=== PATIENT | female | born 1950 | race Caucasian/White ===

== ENCOUNTER 2023-07-21 15:13 | Inpatient (IN) | payer OTHER, SELFPAY ==
[2023-07-21] VITALS (10 sets, daily range): BP systolic 124–191; BP diastolic 64–72; PULSE 85–121; RESP 18–24; TEMP 36.9–37.8; O2SAT 92–96; BMI 42.2
[2023-07-21 15:38] LABS: Appearance Urine Slightly Cloudy (Clear); Bilirubin Urine Negative (Negative); Blood Urine 1+ (Negative); Color Urine Yellow (Yellow); Glucose Urine 2+ (Negative); Ketones Urine Negative (Negative); Leukocyte Esterase Urine Trace (Negative); Nitrite Urine Negative (Negative); Protein Urine Trace (Negative); Specific Gravity Urine 1.015 (1.000-1.030); Urobilinogen Urine 0.2 (0.2-1.0)
[2023-07-21 15:47] LABS: Bacteria Urine Moderate
[2023-07-21 16:27] LABS: Lactate Sepsis w/Reflex* 2.4 mmol/L (0.5-1.9)
--- NOTE | 2023-07-21 16:27 | ED.GENADULT ---
HPI - General Adult General Date Seen: 07/21/23 Chief complaint: Unspecified Complaint, Adult Stated complaint: Chills Time Seen by Provider: 07/21/23 15:57 Source: patient Mode of arrival: ambulatory Limitations: no limitations History of Present Illness HPI narrative: Patient is a 72-year-old woman with underlying diabetes, hypertension, who was at work when she developed chills. No fever that she knows of. She has some pain in the right side of her back although she says that is been on and off for a number of months. Her knees always hurt, no different than usual. She has a little swelling in both ankles because she has been out of her diuretic for the past couple of weeks. She has not had a cough, chest pain, shortness of breath, headache, vomiting, diarrhea, abdominal pain, or other urinary symptoms. She feels better now that she is here under a blanket but she worries that she is not under the blanket she feel chilled again. She is Thai speaking, history obtained with the assistance of an sonography technician. Related Data Home Medications Medication Instructions Recorded Confirmed amlodipine 10 mg tablet 10 mg PO DAILY 07/21/23 07/21/23 atorvastatin 40 mg tablet 40 mg PO DAILY 07/21/23 07/21/23 hydrochlorothiazide 25 mg tablet 25 mg PO DAILY 07/21/23 07/21/23 losartan 50 mg tablet 50 mg PO DAILY 07/21/23 07/21/23 metformin 1,000 mg tablet 1,000 mg PO BID 07/21/23 07/21/23 metoprolol tartrate 50 mg tablet 50 mg PO BID 07/21/23 07/21/23 Allergies Allergy/AdvReac Type Severity Reaction Status Date / Time No Known Drug Allergies Allergy Verified 07/21/23 15:24 Review of Systems Status of ROS: Reports: 10 or more systems reviewed and unremarkable except as noted in History and below [facility] Social History Smoking Status: Never smoker Do you use any of these nicotine containing products: None Second hand tobacco smoke exposure: Yes How often do you have a drink containing alcohol: never AUDIT-C Alcohol total score: 0 Non-prescribed substance use: denies use service: No Exam Narrative: Exam Narrative: Vital signs as noted above. In general, an alert, nontoxic woman. Significant abdominal girth. Head: Normocephalic, atraumatic. Eyes: Pupils are equal reactive. Extraocular movements are full. Conjunctivae are normal. ENT: Mucous membranes are moist. Throat is normal. Neck: Supple without lymphadenopathy. Heart: Tachycardic, regular. No murmur. Lungs: Clear bilaterally. No increased work of breathing, crackles or wheezes. No CVA tenderness. Abdomen: Soft and nontender. Extremities: Well perfused. Trace edema in both ankles. No calf tenderness. Pulses intact. Bilateral knees are normal in appearance without effusion, erythema, warmth. Neurologic: Patient is alert and oriented to person and place. Speech is fluent. Face is symmetric. Moves all extremities equally. Affect: Normal. Skin: Warm and dry. Well perfused. Const: Vital Signs, click to edit/add: Vital Signs - 24 hr 07/21/23 15:26 07/21/23 18:31 07/21/23 18:35 Temperature 99.3 F 100.0 F H 100.0 F H Pulse Rate [Right Pulse Oximeter] 121 H 101 H 105 H Respiratory Rate 24 18 22 Blood Pressure [Ri ght Upper Arm] 191/66 H 139/64 Pulse Oximetry 92 92 Oxygen Delivery Me thod Room Air Room Air Oxygen Flow Rate 07/21/23 18:37 07/21/23 19:40 07/21/23 20:00 Temperature 99.6 F 99.6 F Pulse Rate [Right Pulse Oximeter] 106 H Respiratory Rate 22 Blood Pressure [Ri ght Upper Arm] 139/64 127/69 Pulse Oximetry 94 Oxygen Delivery Me thod Nasal Cannula Oxygen Flow Rate 1.5 Documenting provider has reviewed patient's vital signs: yes Course Course Hospital Course: Following initial evaluation, an IV was placed, I ordered blood cultures and a L normal saline. She is technically afebrile, which she was tachycardic, complained of chills and my initial concern was for possible early sepsis. Labs were fairly unrevealing. She had a white blood cell count of 10.6, she did have a left shift with 88% neutrophils. Hemoglobin normal at 13 and platelets were normal. Sed rate was normal and CRP was minimally elevated at 2.3. Her blood sugar was 278, the remainder of her metabolic panel was unremarkable. Lactate was elevated at 2.4. Urinalysis showed 2-5 red cells and 2-5 white cells, moderate bacteria. She did not have any exam findings suggestive of pyelonephritis and this pain that she has been having on her right flank to lower back has been ongoing for quite some time. COVID was negative. Chest x-ray by my review did not show infiltrate or other acute findings, read as negative by Radiology. TSH was normal. I did a bedside ultrasound, noted gallstones without sonographic Horan's or wall thickening. Cardiac ultrasound was challenging because of her body habitus, no obvious pericardial effusion and she did not seem to have significantly decreased EF. It was difficult to visualize her IVC secondary to body habitus. I elected to do CT scans of the chest abdomen and pelvis, to further evaluate for possible pneumonia, cholecystitis, or other acute finding in the abdomen which might lead to sepsis. She did ultimately end up with a temp of a 100?, tachycardia was improved down to 105. For period of time she was somewhat hypoxic and was put on oxygen, this did seem to improve when she was laying still. CT scan of the chest by my review did not show significant infiltrate and no evidence of PE, final radiology read was essentially negative, she had some nonspecific mild lymphadenopathy, possibly reactive. In the abdomen, by my review she had a calcified mass in the pelvis that looked like probably a fibroid, she also had a separate mass in the pelvis which I was not able to further characterize. Final radiology read is as follows:IMPRESSION: No acute findings within the abdomen and pelvis. Cholelithiasis without evidence for cholecystitis. Hepatic steatosis. Indeterminate 6 cm soft tissue mass in the right lower quadrant/right adnexa with an adjacent 1.8 cm soft tissue nodule. Malignancy can`t be excluded. Recommend pelvic ultrasound for further characterization. 6 cm partially calcified fibroid arising anterior uterus. At this time, vital signs are improved, I did have nursing try to get her up to ambulate to see how she did in terms of respiratory status as well as ability to ambulate as reportedly she had had some difficulty getting up earlier. Nursing reports that she was unsteady on her feet, complained of weakness, dropped her O2 sats to the mid upper 80s. Etiology of this is at this point somewhat unclear although an infectious cause seems likely. The pelvic mass is likely an incidental finding but will need further follow-up. I reviewed all of this with the patient and her son. Vital Signs Vital signs: Initial Vital Signs Temperature 99.3 F 07/21/23 15:26 Temperature Source Temporal Artery Scan 07/21/23 15:26 Pulse Rate 121 H 07/21/23 15:26 Respiratory Rate 24 07/21/23 15:26 Blood Pressure 191/66 H 07/21/23 15:26 Blood Pressure Mean 107 H 07/21/23 15:26 Blood Pressure Position Sitting 07/21/23 15:26 Pulse Oximetry 92 07/21/23 15:26 Oxygen Delivery Method Room Air 07/21/23 15:26 Vital Signs Temperature 99.3 F 07/21/23 15:26 Pulse Rate 121 H 07/21/23 15:26 Respiratory Rate 24 07/21/23 15:26 Blood Pressure 191/66 H 07/21/23 15:26 Pulse Oximetry 92 07/21/23 15:26 Oxygen Delivery Method Room Air 07/21/23 15:26 Temperature 99.6 F 07/21/23 20:00 Pulse Rate 106 H 07/21/23 19:40 Respiratory Rate 22 07/21/23 19:40 Blood Pressure 127/69 07/21/23 19:40 Pulse Oximetry 94 07/21/23 19:40 Oxygen Delivery Method Nasal Cannula 07/21/23 19:40 Oxygen Flow Rate 1.5 07/21/23 19:40 Medical Decision Making Lab Data Labs: Lab Results 07/21/23 07/21/23 07/21/23 Range/Units 15:31 16:12 16:20 WBC 10.58 (4.50-11.00) K/uL RBC 4.91 (4.00-5.20) m/uL Hgb 13.0 (12.0-16.0) gm/dL Hct 41.6 (33.0-51.0) % MCV 85 (80-100) fL MCH 27 (26-34) pg MCHC 31 L (32-36) gm/dL RDW Coeff of Lissy 14.3 (11.5-15.5) % Plt Count 217 (140-440) K/uL Neut % (Auto) 87.6 H (42.0-72.0) % Lymph % (Auto) 10.2 L (20-44) % [place] % (Auto) 1.2 (0.0-11.0) % Eos % (Auto) 0.8 (0.0-7.0) % Baso % (Auto) 0.0 (0.0-3.0) % Neut # (Auto) 9.30 H (1.7-7.0) K/uL Lymph # (Auto) 1.10 (0.90-2.90) K/uL [place] # (Auto) 0.10 (0.00-0.90) K/UL Eos # (Auto) 0.08 (0.00-0.50) K/uL Baso # (Auto) 0.00 (0.00-0.30) K/uL Abs Immat Gran (auto) 0.02 (0.00-0.30) K/uL Imm/Tot Granulo (auto) 0.2 % ESR 17 (2-20) mm/hr Sodium 139 (135-149) mmol/L Potassium 3.9 (3.6-5.1) mmol/L Chloride 107 (96-114) mmol/L Carbon Dioxide 25 (20-32) mmol/L Anion Gap 7 (7-15) mEq/L BUN 25 (7-30) mg/dL Creatinine 0.6 (0.5-1.5) mg/dL Estimated GFR 95 ml/min Glucose 278 H (60-115) mg/dL Lactate 2.4 H (0.5-1.9) mmol/L Calcium 8.7 (8.4-10.6) mg/dL Total Bilirubin 0.4 (0.1-1.5) mg/dL Direct Bilirubin 0.1 (0.0-0.5) mg/dL AST 37 H (12-35) U/L ALT 30 (4-35) U/L Alkaline Phosphatase 198 H (40-150) U/L C-Reactive Protein 2.3 H (0.5-1.0) mg/dL Total Protein 6.7 (6.0-8.3) g/dL Albumin 3.6 (3.3-5.0) g/dL TSH 0.966 (0.270-4.200) uIU/mL Urine Color Yellow (Yellow) Urine Appearance Slightly Cloudy A (Clear) Urine pH 7.0 (5.0-8.5) Ur Specific [place] 1.015 (1.000-1.030) Urine Protein Trace A (Negative) Urine Glucose (UA) 2+ A (Negative) Urine Ketones Negative (Negative) Urine Blood 1+ A (Negative) Urine Nitrite Negative (Negative) Urine Bilirubin Negative (Negative) Urine Urobilinogen 0.2 (0.2-1.0) Ur Leukocyte Esterase Trace A (Negative) Urine RBC 2-5 A (0-2) Urine WBC 2-5 (0-5) Ur Squamous Epith Cells None (None-Few) Urine Bacteria Moderate A (None) SARS-CoV-2 (PCR) Negative SARS-CoV-2 (Negative) Influenza Type A (PCR) Negative PCR FLU A (Negative) Influenza Type B (PCR) Negative PCR FLU B (Negative) RSV (PCR) Negative PCR RSV (Negative) 07/21/23 Range/Units 18:53 WBC (4.50-11.00) K/uL RBC (4.00-5.20) m/uL Hgb (12.0-16.0) gm/dL Hct (33.0-51.0) % MCV (80-100) fL MCH (26-34) pg MCHC (32-36) gm/dL RDW Coeff of Lissy (11.5-15.5) % Plt Count (140-440) K/uL Neut % (Auto) (42.0-72.0) % Lymph % (Auto) (20-44) % [place] % (Auto) (0.0-11.0) % Eos % (Auto) (0.0-7.0) % Baso % (Auto) (0.0-3.0) % Neut # (Auto) (1.7-7.0) K/uL Lymph # (Auto) (0.90-2.90) K/uL [place] # (Auto) (0.00-0.90) K/UL Eos # (Auto) (0.00-0.50) K/uL Baso # (Auto) (0.00-0.30) K/uL Abs Immat Gran (auto) (0.00-0.30) K/uL Imm/Tot Granulo (auto) % ESR (2-20) mm/hr Sodium (135-149) mmol/L Potassium (3.6-5.1) mmol/L Chloride (96-114) mmol/L Carbon Dioxide (20-32) mmol/L Anion Gap (7-15) mEq/L BUN (7-30) mg/dL Creatinine (0.5-1.5) mg/dL Estimated GFR ml/min Glucose (60-115) mg/dL Lactate 1.5 (0.5-1.9) mmol/L Calcium (8.4-10.6) mg/dL Total Bilirubin (0.1-1.5) mg/dL Direct Bilirubin (0.0-0.5) mg/dL AST (12-35) U/L ALT (4-35) U/L Alkaline Phosphatase (40-150) U/L C-Reactive Protein (0.5-1.0) mg/dL Total Protein (6.0-8.3) g/dL Albumin (3.3-5.0) g/dL TSH (0.270-4.200) uIU/mL Urine Color (Yellow) Urine Appearance (Clear) Urine pH (5.0-8.5) Ur Specific [place] (1.000-1.030) Urine Protein (Negative) Urine Glucose (UA) (Negative) Urine Ketones (Negative) Urine Blood (Negative) Urine Nitrite (Negative) Urine Bilirubin (Negative) Urine Urobilinogen (0.2-1.0) Ur Leukocyte Esterase (Negative) Urine RBC (0-2) Urine WBC (0-5) Ur Squamous Epith Cells (None-Few) Urine Bacteria (None) SARS-CoV-2 (PCR) (Negative) Influenza Type A (PCR) (Negative) Influenza Type B (PCR) (Negative) RSV (PCR) (Negative) Discharge Plan Discharge Clinical Impression: Fever, Pelvic mass Patient Disposition: Admitted As Observation Condition: Stable
[2023-07-21] MEDS: 0.9 % SODIUM CHLORIDE 1000 ml 1,000 ML IV ×2 (16:29→17:18)
[2023-07-21 16:30] LABS: Eosinophils Absolute Auto 0.08 K/uL (0.00-0.50); Eosinophils Percent Auto 0.8 % (0.0-7.0); Hematocrit 41.6 % (33.0-51.0); Immature Granulocytes Abs Auto 0.02 K/uL (0.00-0.30); Immature Granulocytes Pct Auto 0.2 %; Lymphocytes Percent Auto 10.2 % (20-44); Mean Corpuscular HGB Conc 31 gm/dL (32-36); Mean Corpuscular Hemoglobin 27 pg (26-34); Mean Corpuscular Volume 85 fL (80-100); Monocytes Percent Auto 1.2 % (0.0-11.0); Neutrophils Percent Auto 87.6 % (42.0-72.0); Platelet Count* 217 K/uL (140-440); RDW Coefficient of Variation % 14.3 % (11.5-15.5); Red Blood Count 4.91 m/uL (4.00-5.20); Slide Review Reflex No; White Blood Count* 10.58 K/uL (4.50-11.00)
[2023-07-21 16:44] LABS: Chloride* 107 mmol/L (96-114); Potassium* 3.9 mmol/L (3.6-5.1); Sodium* 139 mmol/L (135-149)
[2023-07-21 16:45] LABS: Albumin* 3.6 g/dL (3.3-5.0)
[2023-07-21 16:47] LABS: Anion Gap 7 mEq/L (7-15); Blood Urea Nitrogen* 25 mg/dL (7-30); Carbon Dioxide* 25 mmol/L (20-32); Creatinine* 0.6 mg/dL (0.5-1.5); Estimated Glomerular Filt Rate 95 ml/min
[2023-07-21 16:48] LABS: Aspartate Amino Transferase* 37 U/L (12-35); Bilirubin Direct* 0.1 mg/dL (0.0-0.5); Bilirubin Total* 0.4 mg/dL (0.1-1.5); Calcium* 8.7 mg/dL (8.4-10.6); Glucose* 278 mg/dL (60-115); Total Protein* 6.7 g/dL (6.0-8.3)
[2023-07-21 16:49] LABS: Alkaline Phosphatase* 198 U/L (40-150)
[2023-07-21 16:50] LABS: C Reactive Protein* 2.3 mg/dL (0.5-1.0)
--- NOTE | 2023-07-21 17:02 | CRLHL7_ITS ---
For Patients: As a result of the Cures Act, medical imaging exams and procedure reports are released immediately into your electronic medical record. You may view this report before your referring provider. If you have questions, please contact your health care provider. INDICATION: CHILLS, HYPOXIA TECHNIQUE: Chest 2 views. COMPARISON: None. FINDINGS: Cardiovascular and mediastinum: Heart size and vasculature are normal in caliber and appearance. Mediastinum is within normal limits. Lungs and pleural spaces: Lungs are clear. No sign of infiltrate or mass. No sign of pleural effusion. No pneumothorax. Bones and soft tissues: No significant findings. IMPRESSION: Unremarkable chest. Dictated by: Rey Nix MD @ 07/21/2023 17:39:41 (Electronically Signed)
[2023-07-21 17:05] LABS: Alanine Aminotransferase* 30 U/L (4-35); Erythrocyte SedimentationRate* 17 mm/hr (2-20)
[2023-07-21 17:09] LABS: PCR FLU A Negative PCR FLU A (Negative); PCR FLU B Negative PCR FLU B (Negative); PCR RSV Negative PCR RSV (Negative)
[2023-07-21 17:13] LABS: SARS PCR* Negative SARS-CoV-2 (Negative)
[2023-07-21 17:32] LABS: TSH With Reflex to FT4* 0.966 uIU/mL (0.270-4.200)
--- NOTE | 2023-07-21 17:36 | CRLHL7_ITS ---
For Patients: As a result of the Century Cures Act, medical imaging exams and procedure reports are released immediately into your electronic medical record. You may view this report before your referring provider. If you have questions, please contact your health care provider. INDICATION: Gallstones, right flank pain TECHNIQUE: CT abdomen and pelvis acquired with 95 cc Isovue 370 IV contrast. Permanently recorded images are archived. COMPARISON: Chest CT from the same day FINDINGS: Lower chest: Dictated separately Liver: Normal contour. Hepatic steatosis. No focal hepatic lesion. Gallbladder and bile ducts: Cholelithiasis. No inflammation or biliary ductal dilation. Pancreas: Unremarkable. No mass or inflammation. Spleen: Unremarkable. Normal in size. No masses. Adrenal glands: Unremarkable. No nodules. Kidneys, Ureters, and Bladder: Unremarkable. No suspicious masses, stones, or hydronephrosis. Unremarkable ureters and bladder. GI tract: Unremarkable. Normal in caliber. No sign of inflammation. Normal appendix. Vasculature: Normal caliber abdominal aorta with mild atherosclerotic calcification. Mesenteric arteries are patent. Lymph nodes: No lymphadenopathy. Peritoneum/Abdominal Wall: Unremarkable. No free air or significant free fluid. Pelvis: 6 cm soft tissue mass in the right lower quadrant/right adnexa with adjacent 1.8 cm soft tissue nodule between the mass and the uterus. Large, 6 cm, partially calcified fibroid arising from the anterior uterus. Bones: L4-5 posterior fusion changes. Findings compatible with diffuse idiopathic skeletal hyperostosis involving the lower thoracic and upper lumbar spine. IMPRESSION: No acute findings within the abdomen and pelvis. Cholelithiasis without evidence for cholecystitis. Hepatic steatosis. Indeterminate 6 cm soft tissue mass in the right lower quadrant/right adnexa with an adjacent 1.8 cm soft tissue nodule. Malignancy can`t be excluded. Recommend pelvic ultrasound for further characterization. 6 cm partially calcified fibroid arising anterior uterus. Please note that all CT scans at this facility use dose modulation, iterative reconstruction, and/or weight-based dosing when appropriate to reduce radiation dose to as low as reasonably achievable. Dictated by Colin Martinez MD @ 07/21/2023 7:11:53 PM (Electronically Signed)
--- NOTE | 2023-07-21 17:37 | CRLHL7_ITS ---
For Patients: As a result of the Century Cures Act, medical imaging exams and procedure reports are released immediately into your electronic medical record. You may view this report before your referring provider. If you have questions, please contact your health care provider. INDICATION: Chills, hypoxia. TECHNIQUE: CT chest PE was acquired with 100 cc Omnipaque 350 IV contrast. Permanently recorded images are archived. COMPARISON: CT abdomen and pelvis from the same day. FINDINGS: Heart and vasculature: Contrast opacification of the pulmonary arterial tree is adequate. No sign of pulmonary embolism. Heart size is normal. Thoracic aorta and pulmonary artery are normal in caliber. Coronary artery and thoracic aorta atherosclerotic calcification. Lungs and pleura: No suspicious nodules or consolidation. No pleural effusions or pneumothorax. Lymph nodes/mediastinum: Multiple prominent right paratracheal lymph nodes which are not pathologically enlarged by size criteria. Mildly enlarged pretracheal lymph node, series 4, image 71. No axillary lymphadenopathy. Chest wall: No masses. Thyroid: Small calcified left thyroid lobe nodule. Upper abdomen: Dictated separately Bones: Findings compatible with diffuse idiopathic skeletal hyperostosis involving the thoracic and upper lumbar spine. There is an age-indeterminate, though chronic-appearing fracture of the T8 vertebral body which through the robust anterior marginal osteophyte. IMPRESSION: No pulmonary embolism. Mildly prominent right paratracheal and precarinal lymph node. These are nonspecific, possibly reactive to an infectious or inflammatory process. No acute airspace disease identified. Please note that all CT scans at this facility use dose modulation, iterative reconstruction, and/or weight-based dosing when appropriate to reduce radiation dose to as low as reasonably achievable. Dictated by Colin Martinez MD @ 07/21/2023 7:03:05 PM (Electronically Signed)
[2023-07-21 19:00] LABS: Lactate Sepsis 2 Hour 1.5 mmol/L (0.5-1.9)
--- NOTE | 2023-07-21 19:29 | ED.NURSE ---
Attempted to walk patient and her oxygen saturation dropped to 85% on room air. She verbalized feeling dizzy and was assited back to bed. She was placed on 1.5 liters of oxygen and saturation increased to 92%. MD notified.
[2023-07-21] MEDS: PIPERACILLIN/TAZOBACTAM 3.375 GM in 0.9 % SODIUM CHLORIDE Mini-bag 100 ML IVPB (19:33)
[2023-07-21] MEDS: ACETAMINOPHEN 500 MG TABLET 1000 MG PO (20:00)
--- NOTE | 2023-07-21 20:43 | PC.NURSE ---
Received pt from ED. slip free stockings placed and pt ambulated to with severe tachypnea. Multiple family members at assisting with cares. VSS as recorded- temp 99.5. Remains on 2 L NC.
[2023-07-21 21:52] LABS: Procalcitonin* 0.22 ng/mL (<0.50)
[2023-07-21] MEDS: INSULIN NPH 100 UNIT/ML 30 UNIT SUBCUT (22:33)
[2023-07-21] MEDS: ENOXAPARIN 40 MG/0.4 ML INJ SUBCUT (22:34)
[2023-07-21] MEDS: METOPROLOL TARTRATE 50 MG TABLET PO (22:35)
--- NOTE | 2023-07-21 22:54 | P.IMHP_ITS ---
Hospitalist- H&P: HPI History of Present Illness Date Seen: 07/21/23 Chief complaint: Chills Narrative: Nohemi Blair is a 72 year old female with diabetes hypertension and obesity who presents with onset of shaking chills and fever about 2:00 a.m. this afternoon. Prior to that she was feeling well. No other obvious symptoms of illness. She is seen with her son who she requests does interpreting for her. She declines professional sedimentationist services. Prior to this afternoon she is not aware of other symptoms of illness. She does note that yesterday she was feeling hot but the weather outside was very hot and humid. She did not have chills and she is not aware of a fever at that time. She was also not feeling ill. She has had back pain for about a month. This is in her right low back area. She is not aware of an injury there. She is not having any urinary symptoms. No nausea or vomiting or abdominal pain. Bowel and bladder function have been normal. She has not had any respiratory problems. No shortness of breath or cough or congestion or sore throat. She has been hypoxic in the emergency department but has not been feeling short of breath. She has had no recent travel and she has had no known exposures to anybody else who has been ill. She does have a history of cholelithiasis. No obvious symptoms of cholecystitis or biliary colic however. Review of Systems Narrative: Review of systems unremarkable except as noted above. Family does note that she snores heavily. Her son also reports that he has sleep apnea and uses CPAP. She has apparently not been evaluated for this in the past. She notes from last few days she has had a little bit of swelling in her feet. She has also had some vaginal bleeding recently. [facility] Medical History (Updated 07/21/23 @ 23:14 by Naveen Ospina MD) Sepsis ?A41.9 - Sepsis, unspecified organism (ICD-10) Proteinuria due to type 2 diabetes mellitus ?E11.29 - Type 2 diabetes mellitus with other diabetic kidney complication (ICD-10) ?R80.9 - Proteinuria, unspecified (ICD-10) Diabetic polyneuropathy ?E11.42 - Type 2 diabetes mellitus with diabetic polyneuropathy (ICD-10) Cholelithiasis ?K80.20 - Calculus of gallbladder without cholecystitis without obstruction (ICD-10) Spinal stenosis of lumbar region ?M48.061 - Spinal stenosis, lumbar region without neurogenic claudication (ICD-10) Hyperlipidemia ?E78.5 - Hyperlipidemia, unspecified (ICD-10) Hypertension ?I10 - Essential (primary) hypertension (ICD-10) Diabetes mellitus ?E11.9 - Type 2 diabetes mellitus without complications (ICD-10) Sleep apnea ?G47.30 - Sleep apnea, unspecified (ICD-10) Morbid obesity with BMI of 40.0-44.9, adult ?E66.01 - Morbid (severe) obesity due to excess calories (ICD-10) ?Z68.41 - Body mass index [BMI] 40.0-44.9, adult (ICD-10) Postmenopausal vaginal bleeding ?N95.0 - Postmenopausal bleeding (ICD-10) Surgical History (Updated 07/21/23 @ 23:03 by Naveen Ospina MD) History of surgery on left wrist ?Z98.890 - Other specified postprocedural states (ICD-10) History of lumbar laminectomy ?Z98.890 - Other specified postprocedural states (ICD-10) History of section ?Z98.891 - History of uterine scar from previous surgery (ICD-10) Family History (Updated 07/21/23 @ 23:04 by Naveen Ospina MD) Father Coronary artery disease Diabetes Social History (Updated 07/21/23 @ 23:06 by Naveen Ospina MD) Narrative: She lives in [place] with family. She does not smoke. She rarely drinks alcohol. Her son, Liam, is healthcare power of compliance attorney. Code status is full. What is your current living situation?: I presently have a place to live Problems where you live: no known problems Problems where you live details: N/A In the past 12 months, utilities in danger of being shut off: no In the past 12 mos, have been you worried that your food would run out before you had money to buy more?: never true In the past 12 mos, the food you bought just didn't last and you didn't have money to buy more?: never true Smoking Status: Never smoker Do you use any of these nicotine containing products: None Second hand tobacco smoke exposure: Yes How often do you have a drink containing alcohol: never AUDIT-C Alcohol total score: 0 Non-prescribed substance use: denies use Caffeine: No How often does anyone, including family, friends and others, physically hurt you : never How often does anyone, including family, friends and others, insult or talk down to you: never How often does anyone, including family, friends and others, threaten you with harm: never How often does anyone, including family, friends and others, scream or curse at you: never service: No Meds Home Medications and Allergies Home Medications Medication Instructions Recorded Confirmed Type amlodipine 10 mg tablet 10 mg PO DAILY 07/21/23 07/21/23 History atorvastatin 40 mg tablet 40 mg PO DAILY 07/21/23 07/21/23 History ezetimibe 10 mg tablet 10 mg PO DAILY 07/21/23 07/21/23 History fenofibrate nanocrystallized 145 145 mg PO DAILY 07/21/23 07/21/23 History mg tablet fluconazole 150 mg tablet mg PO 07/21/23 History hydrochlorothiazide 25 mg tablet 25 mg PO DAILY 07/21/23 07/21/23 History insulin NPH-regular 70-30 U-100 50 unit subcut BID 07/21/23 07/21/23 History insulin 100 unit/mL subcutaneous pen (Humulin 70/30 U-100 KwikPen) losartan 50 mg tablet 50 mg PO DAILY 07/21/23 07/21/23 History metformin 1,000 mg tablet 1,000 mg PO BID 07/21/23 07/21/23 History metoprolol tartrate 50 mg tablet 50 mg PO BID 07/21/23 07/21/23 History Allergies Allergy/AdvReac Type Severity Reaction Status Date / Time No Known Drug Allergies Allergy Verified 07/21/23 15:24 Exam Narrative: Exam Narrative: She is alert and appears in no distress but has intermittent shaking chills. She gives her own history. Eyes are normal except for the presence of cataracts. Oropharynx with very small airway and dry mucous membranes. Neck is supple without mass or adenopathy. Respirations are clear to auscultation. Cardiovascular: S1, S2, regular rate and rhythm. Abdomen is soft without tenderness or mass. External genitalia normal. Perineum is normal. Extremities with intact pulses and sensation. She moves all 4 extremities well. Skin is without rash. Const: Vital Signs, click to edit/add: Vital Signs - 24 hr 07/21/23 15:26 07/21/23 18:31 07/21/23 18:35 Temperature 99.3 F 100.0 F H 100.0 F H Pulse Rate [Pulse Oximeter] Pulse Rate [Right Pulse Oximeter] 121 H 101 H 105 H Respiratory Rate 24 18 22 Blood Pressure [Le ft Arm] Blood Pressure [Ri ght Upper Arm] 191/66 H 139/64 Pulse Oximetry 92 92 Oxygen Delivery Me thod Room Air Room Air Oxygen Flow Rate 07/21/23 18:37 07/21/23 19:40 07/21/23 20:00 Temperature 99.6 F 99.6 F Pulse Rate [Pulse Oximeter] Pulse Rate [Right Pulse Oximeter] 106 H Respiratory Rate 22 Blood Pressure [Le ft Arm] Blood Pressure [Ri ght Upper Arm] 139/64 127/69 Pulse Oximetry 94 Oxygen Delivery Me thod Nasal Cannula Oxygen Flow Rate 1.5 07/21/23 20:43 07/21/23 20:43 07/21/23 21:31 Temperature 99.5 F 99.5 F Pulse Rate [Pulse Oximeter] 104 H Pulse Rate [Right Pulse Oximeter] Respiratory Rate 22 22 Blood Pressure [Le ft Arm] 151/72 H Blood Pressure [Ri ght Upper Arm] Pulse Oximetry 95 95 Oxygen Delivery Me thod Nasal Cannula Nasal Cannula Oxygen Flow Rate 2 2 Documenting provider has reviewed patient's vital signs: yes Hospitalist - H&P: Result Labs Labs: Short CBC 07/21/23 Range/Units 16:20 WBC 10.58 (4.50-11.00) K/uL Hgb 13.0 (12.0-16.0) gm/dL Hct 41.6 (33.0-51.0) % Plt Count 217 (140-440) K/uL BMP 07/21/23 16:20 Sodium 139 Potassium 3.9 Chloride 107 Carbon Dioxide 25 BUN 25 Creatinine 0.6 Glucose 278 H Calcium 8.7 Liver Function 07/21/23 Range/Units 16:20 Total Bilirubin 0.4 (0.1-1.5) mg/dL Direct Bilirubin 0.1 (0.0-0.5) mg/dL AST 37 H (12-35) U/L ALT 30 (4-35) U/L Alkaline Phosphatase 198 H (40-150) U/L Albumin 3.6 (3.3-5.0) g/dL Urine 07/21/23 Range/Units 15:31 Urine Color Yellow (Yellow) Urine Appearance Slightly Cloudy A (Clear) Urine pH 7.0 (5.0-8.5) Ur Specific [place] 1.015 (1.000-1.030) Urine Protein Trace A (Negative) Urine Glucose (UA) 2+ A (Negative) Imaging CT Chest/Ab/Pelvis: Radiologist's impression: INDICATION: Chills, hypoxia. TECHNIQUE: CT chest PE was acquired with 100 cc Omnipaque 350 IV contrast. Permanently recorded images are archived. COMPARISON: CT abdomen and pelvis from the same day. FINDINGS: Heart and vasculature: Contrast opacification of the pulmonary arterial tree is adequate. No sign of pulmonary embolism. Heart size is normal. Thoracic aorta and pulmonary artery are normal in caliber. Coronary artery and thoracic aorta atherosclerotic calcification. Lungs and pleura: No suspicious nodules or consolidation. No pleural effusions or pneumothorax. Lymph nodes/mediastinum: Multiple prominent right paratracheal lymph nodes which are not pathologically enlarged by size criteria. Mildly enlarged pretracheal lymph node, series 4, image 71. No axillary lymphadenopathy. Chest wall: No masses. Thyroid: Small calcified left thyroid lobe nodule. Upper abdomen: Dictated separately Bones: Findings compatible with diffuse idiopathic skeletal hyperostosis involving the thoracic and upper lumbar spine. There is an age-indeterminate, though chronic-appearing fracture of the T8 vertebral body which through the robust anterior marginal osteophyte. IMPRESSION: No pulmonary embolism. Mildly prominent right paratracheal and precarinal lymph node. These are nonspecific, possibly reactive to an infectious or inflammatory process. No acute airspace disease identified. INDICATION: Gallstones, right flank pain TECHNIQUE: CT abdomen and pelvis acquired with 95 cc Isovue 370 IV contrast. Permanently recorded images are archived. COMPARISON: Chest CT from the same day FINDINGS: Lower chest: Dictated separately Liver: Normal contour. Hepatic steatosis. No focal hepatic lesion. Gallbladder and bile ducts: Cholelithiasis. No inflammation or biliary ductal dilation. Pancreas: Unremarkable. No mass or inflammation. Spleen: Unremarkable. Normal in size. No masses. Adrenal glands: Unremarkable. No nodules. Kidneys, Ureters, and Bladder: Unremarkable. No suspicious masses, stones, or hydronephrosis. Unremarkable ureters and bladder. GI tract: Unremarkable. Normal in caliber. No sign of inflammation. Normal appendix. Vasculature: Normal caliber abdominal aorta with mild atherosclerotic calcification. Mesenteric arteries are patent. Lymph nodes: No lymphadenopathy. Peritoneum/Abdominal Wall: Unremarkable. No free air or significant free fluid. Pelvis: 6 cm soft tissue mass in the right lower quadrant/right adnexa with adjacent 1.8 cm soft tissue nodule between the mass and the uterus. Large, 6 cm, partially calcified fibroid arising from the anterior uterus. Bones: L4-5 posterior fusion changes. Findings compatible with diffuse idiopathic skeletal hyperostosis involving the lower thoracic and upper lumbar spine. IMPRESSION: No acute findings within the abdomen and pelvis. Cholelithiasis without evidence for cholecystitis. Hepatic steatosis. Indeterminate 6 cm soft tissue mass in the right lower quadrant/right adnexa with an adjacent 1.8 cm soft tissue nodule. Malignancy can`t be excluded. Recommend pelvic ultrasound for further characterization. 6 cm partially calcified fibroid arising anterior uterus. Assessment and Plan Assessment and plan (1) Sepsis: Problem comment: Patient presents with fever and shaking chills, hypoxia, elevated lactate. No definite source of infection at this time. Only focal symptoms his back pain/right flank area pain. CT does not show evidence of problem in that area, back, kidney, biliary tree. Consider further evaluation for paraspinal infection if blood cultures are positive. Consider further evaluation for biliary infection if focal signs or symptoms. Consider evaluation of pelvic mass. For now treat with Zosyn and vanco pending clinical course and culture. Status: Acute (2) Diabetes mellitus: Status: Acute (3) Hypoxia: Problem comment: Cause is unclear. I suspect sleep apnea is contributing. Status: Acute (4) Sleep apnea: Status: Suspected (5) Morbid obesity with BMI of 40.0-44.9, adult: Status: Acute (6) Postmenopausal vaginal bleeding: Problem comment: Outpatient evaluation Status: Acute (7) Pelvic mass: Problem comment: Inpatient or outpatient gynecologic consult Status: Acute Plan Patient is admitted to the hospital for evaluation and treatment of sepsis. Source of sepsis is uncertain at this time. Pending clinical course and cultures will continue empiric antibiotics with vancomycin and Zosyn. Total time spent today is 85 minutes, 55 minutes in coordination of care and discussing with patient and family ongoing evaluation management of sepsis.
[2023-07-22] VITALS (8 sets, daily range): BP systolic 114–148; BP diastolic 62–98; PULSE 60–88; RESP 18–22; TEMP 36.2–37.4; O2SAT 90–96
[2023-07-22] MEDS: PIPERACILLIN/TAZOBACTAM 3.375 GM in 0.9 % SODIUM CHLORIDE Mini-bag 100 ML IVPB ×4 (01:18→19:49)
--- NOTE | 2023-07-22 06:24 | PC.NURSE ---
Admission/Shift note: Pt to [facility] for infection, unknown source, on Vanco and Zosyn. Yakut speaking, document reviewer IPAD used. Pt reports SOB on exertion that improves with rest. Denies CP and N/V. Up 1 assist, reports feeling slightly dizzy with ambulation, fall precautions in place. Denies pain. T-max 99.5, VS otherwise stable on 2L O2 PNC. Pt's granddaughter spent the night, supportive.
[2023-07-22 06:27] LABS: Lactate* 0.9 mmol/L (0.5-1.9)
[2023-07-22 06:29] LABS: Basophils Percent Auto 0.2 % (0.0-3.0); Hematocrit 38.7 % (33.0-51.0); Lymphocytes Percent Auto 12.9 % (20-44); Mean Corpuscular HGB Conc 31 gm/dL (32-36); Mean Corpuscular Hemoglobin 27 pg (26-34); Mean Corpuscular Volume 86 fL (80-100); Monocytes Percent Auto 6.3 % (0.0-11.0); Neutrophils Percent Auto 78.6 % (42.0-72.0); Platelet Count* 205 K/uL (140-440); RDW Coefficient of Variation % 14.6 % (11.5-15.5); White Blood Count* 17.64 K/uL (4.50-11.00)
[2023-07-22 06:31] LABS: Slide Review Reflex No
[2023-07-22 06:48] LABS: Chloride* 111 mmol/L (96-114)
[2023-07-22 06:49] LABS: Sodium* 142 mmol/L (135-149)
[2023-07-22 06:50] LABS: Potassium* 4.6 mmol/L (3.6-5.1)
[2023-07-22 06:51] LABS: Creatinine* 0.6 mg/dL (0.5-1.5); Est. Creatinine Clearance* 36.53
[2023-07-22 06:52] LABS: Alanine Aminotransferase* 29 U/L (4-35); Alkaline Phosphatase* 86 U/L (40-150); Anion Gap 2 mEq/L (7-15); Aspartate Amino Transferase* 30 U/L (12-35); Bilirubin Total* 0.3 mg/dL (0.1-1.5); Blood Urea Nitrogen* 19 mg/dL (7-30); Carbon Dioxide* 29 mmol/L (20-32); Estimated Glomerular Filt Rate 95 ml/min; Total Protein* 5.9 g/dL (6.0-8.3)
[2023-07-22 06:53] LABS: Glucose* 159 mg/dL (60-115)
[2023-07-22 06:55] LABS: C Reactive Protein* 8.9 mg/dL (0.5-1.0)
[2023-07-22] MEDS: INSULIN PROT/ASP (NOVOLOG 70/30) 100 UNIT/ML 50 UNIT SUBCUT ×2 (08:13→17:36)
[2023-07-22] MEDS: ACETAMINOPHEN 325 MG TABLET 650 MG PO ×2 (08:14→19:57)
[2023-07-22 08:25] LABS: Procalcitonin* 7.92 ng/mL (<0.50)
[2023-07-22] MEDS: METOPROLOL TARTRATE 50 MG TABLET PO ×2 (09:06→20:59)
[2023-07-22] MEDS: ATORVASTATIN CALCIUM 40 MG TABLET PO (09:06)
[2023-07-22] MEDS: HYDROCORTISONE 2.5% CREAM 1 APPLIC TOPICAL ×2 (09:07→20:59)
[2023-07-22] MEDS: SODIUM CHLORIDE 0.9 % (FLUSH) 10 ML SYRINGE 5 ML IVF ×2 (09:10→19:50)
--- NOTE | 2023-07-22 09:31 | CRLHL7_ITS ---
For Patients: As a result of the Cures Act, medical imaging exams and procedure reports are released immediately into your electronic medical record. You may view this report before your referring provider. If you have questions, please contact your health care provider. INDICATION: Hypoxia. TECHNIQUE: Chest 1 views. COMPARISON: 07/21/2023. FINDINGS: Cardiovasculature and mediastinum: AP technique exaggerates the transverse dimension of the cardiomediastinal silhouette. Maximum mediastinal width is above the upper limit of normal for AP technique. This is nonspecific. No other significant interval findings. Lungs and pleural spaces: Pulmonary vascular redistribution. Bones and soft tissues: No significant findings. IMPRESSION: Pulmonary vascular redistribution consistent with mild congestive heart failure. Widened superior mediastinum, in part related to AP technique, nonspecific. A follow-up PA chest radiograph is recommend. Dictated by Mc Rousseau MD @ 07/22/2023 10:28:13 AM (Electronically Signed)
--- NOTE | 2023-07-22 10:45 | P.IMPN_ITS ---
Progress Note: A&P Assessment and plan (1) Sepsis: Problem details: - clinically, based on fever, chills, hypoxia, elevated lactate on admission 07/21 - on admission, patient noted R flank pain (improved hospital day 1) - current blood cultures NGTD, urine culture + for GNR - continue Vanco/Zosyn (07/20) Status: Acute (2) Pelvic mass: Problem details: - incidentally noted on admission imaging, patient and granddaughter aware - unclear if contributing to admission symptoms - at this time, plan for close outpatient f/u with PCP Status: Acute (3) Diabetes mellitus: Problem details: - continue home medications, SSI (BG 140-150 since admission) Status: Acute (4) Hypoxia: Problem details: - likely related to NEDA, also evidence of pulmonary congestion on 07/22 CXR - TTE ordered Status: Acute (5) Sleep apnea: Status: Suspected Plan - per above - Lovenox for ppx - granddaughter updated at bedside, questions answered Subjective Date Seen: 07/22/23 Interval history: Nohemi was admitted yesterday for fever and weakness, concern for sepsis. Vancomycin and Zosyn were initiated upon admission. This morning, she is feeling better. She has a little discomfort in the left side of her throat, Tylenol has been effectively treating this. She is able to swallow and has no trismus. She has no chest pain, no abdominal pain, no skin concerns. VS and Lab data: No hypotension overnight, TMax 100.0 07/21 Tachycardia resolved overnight Required low dose oxygen supplementation overnight, stable on RA at this time. WBC 10 --> 17 Procal 0.22 --> 7.92 Lactate 2.4 --> 0.9 Her urine is growing GNR, blood cultures currently NGTD. Exam Narrative: Exam Narrative: GEN: Alert and sitting up at bedside HEENT: Mild bilateral eyelid edema (without erythema, able to open eyes at least 75%), EOMIs bilaterally. No trismus, + dentures noted, no concerning neck masses or ttp CV: RRR, soft systolic murmur without concerning features R: LCTA bilaterally without concerning wheezing, air movement adequate Ext: wwp, no concerning edema Skin: No concerning skin lesions or rashes on exposed skin Neuro: Nonfocal Psych: Appropriate Const: Vital Signs, click to edit/add: Vital Signs - 24 hr 07/21/23 15:26 07/21/23 18:31 07/21/23 18:35 Temperature 99.3 F 100.0 F H 100.0 F H Pulse Rate Pulse Rate [Pulse Oximeter] Pulse Rate [Right Pulse Oximeter] 121 H 101 H 105 H Respiratory Rate 24 18 22 Blood Pressure [Le ft Arm] Blood Pressure [Ri ght Upper Arm] 191/66 H 139/64 Pulse Oximetry 92 92 Oxygen Delivery Me thod Room Air Room Air Oxygen Flow Rate 07/21/23 18:37 07/21/23 19:40 07/21/23 20:00 Temperature 99.6 F 99.6 F Pulse Rate Pulse Rate [Pulse Oximeter] Pulse Rate [Right Pulse Oximeter] 106 H Respiratory Rate 22 Blood Pressure [Le ft Arm] Blood Pressure [Ri ght Upper Arm] 139/64 127/69 Pulse Oximetry 94 Oxygen Delivery Me thod Nasal Cannula Oxygen Flow Rate 1.5 07/21/23 20:43 07/21/23 20:43 07/21/23 21:03 Temperature 99.5 F Pulse Rate Pulse Rate [Pulse Oximeter] 104 H Pulse Rate [Right Pulse Oximeter] Respiratory Rate 22 22 Blood Pressure [Le ft Arm] 151/72 H Blood Pressure [Ri ght Upper Arm] Pulse Oximetry 95 95 95 Oxygen Delivery Me thod Nasal Cannula Nasal Cannula Oxygen Flow Rate 2 2 07/21/23 21:31 07/21/23 23:00 07/21/23 23:00 Temperature 99.5 F 98.5 F Pulse Rate 85 Pulse Rate [Pulse Oximeter] 88 Pulse Rate [Right Pulse Oximeter] Respiratory Rate 20 Blood Pressure [Le ft Arm] 124/68 Blood Pressure [Ri ght Upper Arm] Pulse Oximetry 96 Oxygen Delivery Me thod Nasal Cannula Oxygen Flow Rate 2 07/22/23 03:00 07/22/23 08:29 07/22/23 08:46 Temperature 97.5 F L 98.0 F Pulse Rate 71 Pulse Rate [Pulse Oximeter] 68 74 Pulse Rate [Right Pulse Oximeter] Respiratory Rate 22 18 Blood Pressure [Le ft Arm] 114/98 H 137/76 Blood Pressure [Ri ght Upper Arm] Pulse Oximetry 94 95 Oxygen Delivery Me thod Nasal Cannula Nasal Cannula Oxygen Flow Rate 2 1.5 Labs Labs: Laboratory Results - last 24 hr 07/21/23 07/21/23 07/21/23 15:31 16:12 16:20 WBC 10.58 RBC 4.91 Hgb 13.0 Hct 41.6 MCV 85 MCH 27 MCHC 31 L RDW Coeff of Lissy 14.3 Plt Count 217 Neut % (Auto) 87.6 H Lymph % (Auto) 10.2 L [place] % (Auto) 1.2 Eos % (Auto) 0.8 Baso % (Auto) 0.0 Neut # (Auto) 9.30 H Lymph # (Auto) 1.10 [place] # (Auto) 0.10 Eos # (Auto) 0.08 Baso # (Auto) 0.00 Abs Immat Gran (auto) 0.02 Imm/Tot Granulo (auto) 0.2 ESR 17 Sodium 139 Potassium 3.9 Chloride 107 Carbon Dioxide 25 Anion Gap 7 BUN 25 Creatinine 0.6 Estimated Creat Clear Estimated GFR 95 Glucose 278 H Lactate 2.4 H Calcium 8.7 Total Bilirubin 0.4 Direct Bilirubin 0.1 AST 37 H ALT 30 Alkaline Phosphatase 198 H C-Reactive Protein 2.3 H Total Protein 6.7 Albumin 3.6 Procalcitonin 0.22 TSH 0.966 Urine Color Yellow Urine Appearance Slightly Cloudy A Urine pH 7.0 Ur Specific [place] 1.015 Urine Protein Trace A Urine Glucose (UA) 2+ A Urine Ketones Negative Urine Blood 1+ A Urine Nitrite Negative Urine Bilirubin Negative Urine Urobilinogen 0.2 Ur Leukocyte Esterase Trace A Urine RBC 2-5 A Urine WBC 2-5 Ur Squamous Epith Cells None Urine Bacteria Moderate A SARS-CoV-2 (PCR) Negative SARS-CoV-2 Influenza Type A (PCR) Negative PCR FLU A Influenza Type B (PCR) Negative PCR FLU B RSV (PCR) Negative PCR RSV Lab Acknowledgement 07/21/23 07/21/23 07/22/23 18:53 21:06 06:06 WBC 17.64 H RBC 4.50 Hgb 12.0 Hct 38.7 MCV 86 MCH 27 MCHC 31 L RDW Coeff of Lissy 14.6 Plt Count 205 Neut % (Auto) 78.6 H Lymph % (Auto) 12.9 L [place] % (Auto) 6.3 Eos % (Auto) 1.0 Baso % (Auto) 0.2 Neut # (Auto) 13.90 H Lymph # (Auto) 2.30 [place] # (Auto) 1.10 H Eos # (Auto) 0.20 Baso # (Auto) 0.00 Abs Immat Gran (auto) 0.20 Imm/Tot Granulo (auto) 1.0 ESR Sodium 142 Potassium 4.6 Chloride 111 Carbon Dioxide 29 Anion Gap 2 L BUN 19 Creatinine 0.6 Estimated Creat Clear 36.53 Estimated GFR 95 Glucose 159 H Lactate 1.5 0.9 Calcium 8.0 L Total Bilirubin 0.3 Direct Bilirubin 0.0 AST 30 ALT 29 Alkaline Phosphatase 86 C-Reactive Protein 8.9 H Total Protein 5.9 L Albumin 3.0 L Procalcitonin 7.92 H TSH Urine Color Urine Appearance Urine pH Ur Specific [place] Urine Protein Urine Glucose (UA) Urine Ketones Urine Blood Urine Nitrite Urine Bilirubin Urine Urobilinogen Ur Leukocyte Esterase Urine RBC Urine WBC Ur Squamous Epith Cells Urine Bacteria SARS-CoV-2 (PCR) Influenza Type A (PCR) Influenza Type B (PCR) RSV (PCR) Lab Acknowledgement Test Added 07/22/23 07:56 WBC RBC Hgb Hct MCV MCH MCHC RDW Coeff of Lissy Plt Count Neut % (Auto) Lymph % (Auto) [place] % (Auto) Eos % (Auto) Baso % (Auto) Neut # (Auto) Lymph # (Auto) [place] # (Auto) Eos # (Auto) Baso # (Auto) Abs Immat Gran (auto) Imm/Tot Granulo (auto) ESR Sodium Potassium Chloride Carbon Dioxide Anion Gap BUN Creatinine Estimated Creat Clear Estimated GFR Glucose Lactate Calcium Total Bilirubin Direct Bilirubin AST ALT Alkaline Phosphatase C-Reactive Protein Total Protein Albumin Procalcitonin TSH Urine Color Urine Appearance Urine pH Ur Specific [place] Urine Protein Urine Glucose (UA) Urine Ketones Urine Blood Urine Nitrite Urine Bilirubin Urine Urobilinogen Ur Leukocyte Esterase Urine RBC Urine WBC Ur Squamous Epith Cells Urine Bacteria SARS-CoV-2 (PCR) Influenza Type A (PCR) Influenza Type B (PCR) RSV (PCR) Lab Acknowledgement Test Added
--- NOTE | 2023-07-22 11:21 | PC.NURSE ---
Addendum entered by Charley Garcia RN 07/22/23 14:16: Increased appetite as day shift went on- ate 100% of lunch. No sliding scale insulin needed yet today. Continues to complain of itching sensation in vaginal area. Original Note: VSS, except pulse high 50s, low 60s. O2 sats in mid 90s. HOB elevation, weaned off O2. Throat pain, tylenol given w/ relief. LS coarse. Hypo bowel sounds. Complains of itchiness in labial folds- hydrocortisone applied. Advanced to regular diet, minimal appetite, no food consumed. 250cc in. Voided x1, 200 cc. Infiltration of IV, warm compress applied. New IV placed in left FA- infusing IV abx. Up to bathroom w/ 1 assist; reaches for support when transferring- unclear if actually needs or what baseline is.
[2023-07-22] MEDS: ENOXAPARIN 40 MG/0.4 ML INJ SUBCUT (20:59)
[2023-07-23] VITALS (8 sets, daily range): BP systolic 136–159; BP diastolic 71–82; PULSE 71–90; RESP 16–20; TEMP 36.6–37; O2SAT 91–95
[2023-07-23] MEDS: PIPERACILLIN/TAZOBACTAM 3.375 GM in 0.9 % SODIUM CHLORIDE Mini-bag 100 ML IVPB ×4 (01:29→19:41)
--- NOTE | 2023-07-23 03:43 | PC.NURSE ---
PATIENT PLEASANT AND COOPERATIVE, LAO SPEAKING AND PLATE SLITTER AND INSPECTOR IPAD USED, ALERT AND ORIENTED, UP TO BATHROOM WITH A1 AND WALKER TOLERATING FAIRLY, APNEIC PERIODS NOTED WITH REST AND SNORING, O2 APPLIED VIA NC TO KEEP SATS UP, PRN TYLENOL FOR SOME CHRONIC KNEE PAIN WITH RELIEF, FAMILY PRESENT THROUGHOUT SHIFT AND VERY SUPPORTIVE.
[2023-07-23 07:27] LABS: Basophils Absolute Auto 0.03 K/uL (0.00-0.30); Basophils Percent Auto 0.3 % (0.0-3.0); Eosinophils Absolute Auto 0.27 K/uL (0.00-0.50); Eosinophils Percent Auto 2.5 % (0.0-7.0); Hematocrit 38.2 % (33.0-51.0); Hemoglobin* 11.7 gm/dL (12.0-16.0); Immature Granulocytes Abs Auto 0.04 K/uL (0.00-0.30); Immature Granulocytes Pct Auto 0.4 %; Lymphocytes Percent Auto 18.4 % (20-44); Mean Corpuscular HGB Conc 31 gm/dL (32-36); Mean Corpuscular Hemoglobin 27 pg (26-34); Mean Corpuscular Volume 87 fL (80-100); Monocytes Percent Auto 9.8 % (0.0-11.0); Neutrophils Absolute Auto 7.41 K/uL (1.7-7.0); Neutrophils Percent Auto 68.6 % (42.0-72.0); Platelet Count* 181 K/uL (140-440); RDW Coefficient of Variation % 14.7 % (11.5-15.5); Red Blood Count 4.39 m/uL (4.00-5.20)
[2023-07-23 07:29] LABS: Slide Review Reflex No
[2023-07-23 07:46] LABS: Chloride* 109 mmol/L (96-114)
[2023-07-23 07:47] LABS: Potassium* 4.3 mmol/L (3.6-5.1); Sodium* 141 mmol/L (135-149)
[2023-07-23 07:49] LABS: Creatinine* 0.6 mg/dL (0.5-1.5); Est. Creatinine Clearance* 36.53; Estimated Glomerular Filt Rate 95 ml/min
[2023-07-23 07:50] LABS: Anion Gap 6 mEq/L (7-15); Blood Urea Nitrogen* 14 mg/dL (7-30); Carbon Dioxide* 26 mmol/L (20-32)
[2023-07-23 07:51] LABS: Calcium* 8.2 mg/dL (8.4-10.6); Glucose* 129 mg/dL (60-115)
[2023-07-23 07:57] LABS: Lactate* 0.6 mmol/L (0.5-1.9)
[2023-07-23] MEDS: ACETAMINOPHEN 325 MG TABLET 650 MG PO (08:11)
[2023-07-23 08:13] LABS: C Reactive Protein* 14.2 mg/dL (0.5-1.0)
[2023-07-23] MEDS: INSULIN PROT/ASP (NOVOLOG 70/30) 100 UNIT/ML 50 UNIT SUBCUT ×2 (08:20→17:40)
[2023-07-23] MEDS: HYDROCORTISONE 2.5% CREAM 1 APPLIC TOPICAL ×2 (08:41→20:33)
[2023-07-23] MEDS: ATORVASTATIN CALCIUM 40 MG TABLET PO (08:41)
[2023-07-23] MEDS: METOPROLOL TARTRATE 50 MG TABLET PO ×2 (08:41→20:33)
[2023-07-23] MEDS: SODIUM CHLORIDE 0.9 % (FLUSH) 10 ML SYRINGE 5 ML IVF ×2 (08:41→20:33)
--- NOTE | 2023-07-23 12:12 | P.IMPN_ITS ---
Progress Note: A&P Assessment and plan (1) Sepsis: Problem details: - clinically, based on fever, chills, hypoxia, elevated lactate on admission 07/21 - on admission, patient noted R flank pain (improved hospital day 1) - current blood cultures NGTD, urine culture + for pansensitive E Coli - Vanco/Zosyn initiated on 07/20; Vancomycin discontinued on 07/23 Status: Acute (2) Pelvic mass: Problem details: - incidentally noted on admission imaging, patient and granddaughter aware - unclear if contributing to admission symptoms - at this time, plan for close outpatient f/u with PCP Status: Acute (3) Diabetes mellitus: Problem details: - continue home medications, SSI (BG 140-150 since admission) Status: Acute (4) Hypoxia: Problem details: - likely related to NEDA, also evidence of pulmonary congestion on 07/22 CXR - Lasix x1 on 07/23 - still requiring supplemental oxygen, continue to work on tapering this - TTE completed on 07/22: Final Impressions: 1. Technically limited exam. 2. Normal LV size, mildly increased wall thickness, normal global systolic function with an estimated EF of 60 - 65%. 3. Right ventricular cavity size is normal, global systolic RV function is normal. 4. No pericardial effusion. 5. Echo contrast was administered to enhance visualization of all left ventricular segments. Status: Acute (5) Sleep apnea: Problem details: - patient aware close PCP f/u to discuss outpatient sleep study Status: Suspected Plan - per above - Lovenox for ppx - family updated at bedside, questions answered - likely d/c home 07/24 when we have final culture results and patient is stable on RA Subjective Date Seen: 07/23/23 Interval history: Nohemi was admitted to the hospital on 07/21 for fever and weakness with clinical concern for sepsis. Overnight, she required low dose supplemental oxygen and nursing staff noted clinical concern for sleep apnea. She continues to feel better every day. She has no more throat pain. No abdominal pain or back pain, tolerating po intake. She has been afebrile over the past 24 hours. WBC and procalcitonin have improved Her blood cultures remain NGTD, urine culture + for pansensitive E Coli. Exam Narrative: Exam Narrative: GEN: Alert and oriented, answering questions appropriately HEENT: Normal external ears, EOMIs bilaterally, no scleral icterus CV: RRR, No concerning murmurs R: LCTA bilaterally without concerning wheezing or rales, air movement adequate Ext: 2+ symmetric edema BLEs Skin: No concerning skin lesions or rashes on exposed skin Neuro: Nonfocal Psych: Appropriate Const: Vital Signs, click to edit/add: Vital Signs - 24 hr 07/22/23 15:25 07/22/23 15:25 07/22/23 15:34 Temperature 97.9 F Pulse Rate 71 Pulse Rate [Pulse Oximeter] 78 Respiratory Rate 18 Blood Pressure [Le ft Arm] 135/67 Pulse Oximetry 94 94 Oxygen Delivery Me thod Room Air Oxygen Flow Rate 07/22/23 19:00 07/22/23 22:50 07/22/23 22:50 Temperature 99.4 F Pulse Rate 87 Pulse Rate [Pulse Oximeter] 88 Respiratory Rate 18 18 Blood Pressure [Le ft Arm] 145/62 H Pulse Oximetry 92 Oxygen Delivery Me thod Room Air Oxygen Flow Rate 07/22/23 22:50 07/23/23 03:00 07/23/23 07:00 Temperature 99.2 F 98.3 F 98.6 F Pulse Rate Pulse Rate [Pulse Oximeter] 71 81 88 Respiratory Rate 18 20 16 Blood Pressure [Le ft Arm] 148/62 H 150/75 H 159/82 H Pulse Oximetry 90 91 93 Oxygen Delivery Me thod Nasal Cannula Nasal Cannula Nasal Cannula Oxygen Flow Rate 1 2 0.5 07/23/23 08:06 07/23/23 11:00 Temperature 98.2 F Pulse Rate 90 Pulse Rate [Pulse Oximeter] 71 Respiratory Rate 16 Blood Pressure [Le ft Arm] 136/77 Pulse Oximetry 94 Oxygen Delivery Me thod Nasal Cannula Oxygen Flow Rate 1 Labs Labs: Laboratory Results - last 24 hr 07/23/23 06:52 WBC 10.80 RBC 4.39 Hgb 11.7 L Hct 38.2 MCV 87 MCH 27 MCHC 31 L RDW Coeff of Lissy 14.7 Plt Count 181 Neut % (Auto) 68.6 Lymph % (Auto) 18.4 L Jenkins % (Auto) 9.8 Eos % (Auto) 2.5 Baso % (Auto) 0.3 Neut # (Auto) 7.41 H Lymph # (Auto) 2.00 Jenkins # (Auto) 1.10 H Eos # (Auto) 0.27 Baso # (Auto) 0.03 Abs Immat Gran (auto) 0.04 Imm/Tot Granulo (auto) 0.4 Sodium 141 Potassium 4.3 Chloride 109 Carbon Dioxide 26 Anion Gap 6 L BUN 14 Creatinine 0.6 Estimated Creat Clear 36.53 Estimated GFR 95 Glucose 129 H Lactate 0.6 Calcium 8.2 L C-Reactive Protein 14.2 H Procalcitonin 4.10 H
[2023-07-23] MEDS: FUROSEMIDE 40 MG TABLET PO (14:26)
--- NOTE | 2023-07-23 15:01 | PC.NURSE ---
O2 sats high 80s, low 90s, especially when sleeping- required 1L NC; otherwise, VSS. Slight headache this AM- tylenol given w/ relief. LS coarse, edema in UEs, 2+ pitting edema in LLE- one dose lasix given this afternoon. Tolerating meals, SS insulin needed w/ lunch- 550 cc in. Voided x2. Up to bathroom w/ standby assist today. PIV in left FA- infusing abx. Serbian-speaking. Family here off and on throughout day.
[2023-07-23] MEDS: ENOXAPARIN 40 MG/0.4 ML INJ SUBCUT (20:33)
[2023-07-24] MEDS: PIPERACILLIN/TAZOBACTAM 3.375 GM in 0.9 % SODIUM CHLORIDE Mini-bag 100 ML IVPB ×3 (01:50→13:45)
[2023-07-24 02:41] VITALS: BP 130/72; PULSE 78; RESP 18; TEMP 36.7; O2SAT 96
--- NOTE | 2023-07-24 03:56 | PC.NURSE ---
PATIENT PLEASANT AND COOPERATIVE, ALERT AND ORIENTED, UP IND IN ROOM WITH STEADY GAIT, SOME SOB NOTED WITH ACTIVITY, NEW IV STARTED IN LEFT AC DUE TO OLD IV LEAKING PATIENT TOLERATED WELL, DECLINING PAIN, FAMILY VISITED EARLY IN THE EVENING, REQUIRING 1L O2 AT HS DUE TO SATS DROPPING TO LOW 80S WITH SLEEP, APNEIC PERIODS NOTED.
[2023-07-24 06:39] LABS: Lactate* 0.9 mmol/L (0.5-1.9)
[2023-07-24 06:40] LABS: Basophils Absolute Auto 0.04 K/uL (0.00-0.30); Basophils Percent Auto 0.4 % (0.0-3.0); Eosinophils Absolute Auto 0.35 K/uL (0.00-0.50); Eosinophils Percent Auto 3.5 % (0.0-7.0); Hematocrit 41.3 % (33.0-51.0); Hemoglobin* 12.8 gm/dL (12.0-16.0); Immature Granulocytes Abs Auto 0.03 K/uL (0.00-0.30); Immature Granulocytes Pct Auto 0.3 %; Lymphocytes Absolute Auto 2.58 K/uL (0.90-2.90); Lymphocytes Percent Auto 25.5 % (20-44); Mean Corpuscular HGB Conc 31 gm/dL (32-36); Mean Corpuscular Hemoglobin 26 pg (26-34); Mean Corpuscular Volume 85 fL (80-100); Monocytes Percent Auto 11.4 % (0.0-11.0); Neutrophils Absolute Auto 5.97 K/uL (1.7-7.0); Neutrophils Percent Auto 58.9 % (42.0-72.0); Platelet Count* 238 K/uL (140-440); RDW Coefficient of Variation % 14.5 % (11.5-15.5); Red Blood Count 4.85 m/uL (4.00-5.20); White Blood Count* 10.12 K/uL (4.50-11.00)
[2023-07-24 06:41] LABS: Slide Review Reflex No
[2023-07-24 07:00] VITALS: BP 142/73; PULSE 82; RESP 16; TEMP 36.4; O2SAT 93; O2SAT 97
[2023-07-24 07:10] LABS: Albumin* 3.5 g/dL (3.3-5.0); Chloride* 103 mmol/L (96-114)
[2023-07-24 07:11] LABS: Potassium* 4.6 mmol/L (3.6-5.1); Sodium* 143 mmol/L (135-149)
[2023-07-24 07:13] LABS: Bilirubin Total* 0.4 mg/dL (0.1-1.5); Creatinine* 0.6 mg/dL (0.5-1.5); Est. Creatinine Clearance* 36.53; Estimated Glomerular Filt Rate 95 ml/min
[2023-07-24 07:14] LABS: Alanine Aminotransferase* 36 U/L (4-35); Alkaline Phosphatase* 94 U/L (40-150); Anion Gap 5 mEq/L (7-15); Aspartate Amino Transferase* 33 U/L (12-35); Blood Urea Nitrogen* 12 mg/dL (7-30); Calcium* 8.9 mg/dL (8.4-10.6); Carbon Dioxide* 35 mmol/L (20-32); Glucose* 94 mg/dL (60-115); Total Protein* 6.9 g/dL (6.0-8.3)
[2023-07-24 07:17] LABS: C Reactive Protein* 6.9 mg/dL (0.5-1.0)
--- NOTE | 2023-07-24 08:00 | CRLHL7_ITS ---
For Patients: As a result of the Cures Act, medical imaging exams and procedure reports are released immediately into your electronic medical record. You may view this report before your referring provider. If you have questions, please contact your health care provider. INDICATION: Hypoxia. TECHNIQUE: Chest 1 views. COMPARISON: July 22, 2023. FINDINGS: Cardiovascular and mediastinum: Heart size and vasculature are normal in caliber and appearance. Lungs and pleural spaces: Lungs are clear. No sign of infiltrate or mass. No sign of pleural effusion. No pneumothorax. Bones and soft tissues: No significant findings. IMPRESSION: No acute findings and no significant changes from the prior exam. Dictated by Boy Maldonado MD @ 07/24/2023 12:39:31 PM (Electronically Signed)
[2023-07-24] MEDS: INSULIN PROT/ASP (NOVOLOG 70/30) 100 UNIT/ML 50 UNIT SUBCUT (08:09)
[2023-07-24 09:13] VITALS: O2SAT 91; O2SAT 97
[2023-07-24] MEDS: ATORVASTATIN CALCIUM 40 MG TABLET PO (09:13)
[2023-07-24] MEDS: METOPROLOL TARTRATE 50 MG TABLET PO (09:13)
[2023-07-24] MEDS: SODIUM CHLORIDE 0.9 % (FLUSH) 10 ML SYRINGE 5 ML IVF (09:14)
[2023-07-24 11:00] VITALS: BP 141/73; PULSE 78; RESP 16; TEMP 36.1; O2SAT 96
--- NOTE | 2023-07-24 14:24 | P.DS_ITS ---
DS: Providers Provider Date Seen: 07/24/23 Date of admission: 07/21/23 21:02 Primary care physician: Mackenzie Baca MD Admitting Clinician: Naveen Ospina MD Consults: RT Attending Physician on discharge: Tonya Crandall MD Date of Discharge: 07/24/23 DS: Diagnosis Discharge Diagnosis (1) UTI (urinary tract infection): Status: Acute Problem details: - initially presumed to have sepsis; based on fever, chills, hypoxia, elevated lactate on admission 07/21 - on admission, patient noted R flank pain that improved hospital day 1 - blood cultures remained NGTD, urine culture + for pansensitive E Coli - Vanco/Zosyn initiated on 07/20; Vancomycin discontinued on 07/23 - home on oral Keflex (2) Hypoxia: Status: Acute Problem details: - likely related to NEDA, also evidence of pulmonary congestion on 07/22 CXR (resolved on 07/24 CXR) - Lasix x1 on 07/23 - patient able to transition to RA on 07/24, seen by RT and no need for home O2 identified - TTE completed on 07/22: Final Impressions: 1. Technically limited exam. 2. Normal LV size, mildly increased wall thickness, normal global systolic function with an estimated EF of 60 - 65%. 3. Right ventricular cavity size is normal, global systolic RV function is normal. 4. No pericardial effusion. 5. Echo contrast was administered to enhance visualization of all left ventricular segments. (3) Diabetes mellitus: Status: Acute Problem details: - stable during stay - continue home medications upon discharge (4) Sleep apnea: Status: Suspected Problem details: - very likely given snoring overnight, witnessed by family - patient aware close PCP f/u to discuss outpatient sleep study (5) Pelvic mass: Status: Acute Problem details: - incidentally noted on admission imaging, patient and family aware of finding; she also endorsed intermittent PMB - plan for close outpatient f/u with PCP for pelvic ultrasound, possible agency service coordinator referral DS: Summary Hospital Course Hospital Course: Nohemi is a delightful 72 yo female with a history of diabetes and essential hypertension, who presented to the hospital on 07/21 with chills and weakness. She was found to have an elevated temperature and lactate, admitted to the hospital for presumed sepsis. Blood cultures remained negative throughout stay and she objectively and subjectively improved on vancomycin and Zosyn. Urine culture positive for pansensitive E coli and antibiotics narrowed to Zosyn, discharging home on Keflex. Other notable hospital findings above, including incidental finding of right pelvic mass and TTE results. Patient required short course of supplemental oxygen, seen by RT and home oxygen evaluation revealed no home O2 needed. She appears to have NEDA, family aware. Patient is medically appropriate for discharge home with family on 07/24. Recommendations for PCP follow-up: - sleep study referral - Pelvic ultrasound to evaluate incidental right-sided mass Status at Discharge Functional status at discharge: independent ambulation Overall status at discharge: patient is progressing back to baseline Time Spent with Patient Time attestation: Total time spent providing and/or coordinating discharge services: Time spent: Less than 30 minutes Exam Narrative: Exam Narrative: GEN: Alert and oriented, nontoxic in appearance and answering questions appropriately HEENT: EOMIs bilaterally, no scleral icterus CV: RRR, No concerning murmurs R: LCTA bilaterally without concerning wheezing, no rales, air movement adequate Ext: Trace edema bilateral ankles, symmetric Skin: No concerning skin lesions or rashes on exposed skin Neuro: Nonfocal Psych: Appropriate Const: Vital Signs, click to edit/add: Vital Signs - 24 hr 07/23/23 15:47 07/23/23 15:47 07/23/23 15:47 Temperature 97.8 F Pulse Rate Pulse Rate [Pulse Oximeter] 77 Respiratory Rate 18 Blood Pressure [Le ft Arm] 148/73 H Pulse Oximetry 95 95 95 Oxygen Delivery Me thod Nasal Cannula Nasal Cannula Oxygen Flow Rate 1 1 07/23/23 16:08 07/23/23 19:00 07/23/23 23:00 Temperature 98.3 F Pulse Rate 74 Pulse Rate [Pulse Oximeter] 83 Respiratory Rate 18 18 Blood Pressure [Le ft Arm] 152/71 H Pulse Oximetry 94 Oxygen Delivery Me thod Nasal Cannula Oxygen Flow Rate 1 07/23/23 23:00 07/23/23 23:00 07/24/23 02:41 Temperature 98.2 F 98.1 F Pulse Rate Pulse Rate [Pulse Oximeter] 77 78 Respiratory Rate 20 20 18 Blood Pressure [Le ft Arm] 149/77 H 130/72 Pulse Oximetry 94 94 96 Oxygen Delivery Me thod Nasal Cannula Nasal Cannula Nasal Cannula Oxygen Flow Rate 1 1 1 07/24/23 07:00 07/24/23 07:00 07/24/23 11:00 Temperature 97.5 F L 97.0 F L Pulse Rate Pulse Rate [Pulse Oximeter] 82 78 Respiratory Rate 16 16 Blood Pressure [Le ft Arm] 142/73 H 141/73 H Pulse Oximetry 97 93 96 Oxygen Delivery Me thod Nasal Cannula Room Air Room Air Oxygen Flow Rate 1 DS: Data Data Completed and Pending Labs on day of discharge: Labs from last 24 hours 07/24/23 06:00 WBC 10.12 RBC 4.85 Hgb 12.8 Hct 41.3 MCV 85 MCH 26 MCHC 31 L RDW Coeff of Lissy 14.5 Plt Count 238 Neut % (Auto) 58.9 Lymph % (Auto) 25.5 Spencer % (Auto) 11.4 H Eos % (Auto) 3.5 Baso % (Auto) 0.4 Neut # (Auto) 5.97 Lymph # (Auto) 2.58 Spencer # (Auto) 1.20 H Eos # (Auto) 0.35 Baso # (Auto) 0.04 Abs Immat Gran (auto) 0.03 Imm/Tot Granulo (auto) 0.3 Sodium 143 Potassium 4.6 Chloride 103 Carbon Dioxide 35 H Anion Gap 5 L BUN 12 Creatinine 0.6 Estimated Creat Clear 36.53 Estimated GFR 95 Glucose 94 Lactate 0.9 Calcium 8.9 Total Bilirubin 0.4 AST 33 ALT 36 H Alkaline Phosphatase 94 C-Reactive Protein 6.9 H Total Protein 6.9 Albumin 3.5 Preliminary micro results at discharge 07/23/23 06:47 Blood Culture - Preliminary Blood NO GROWTH AFTER 24 HOURS 07/23/23 06:52 Blood Culture - Preliminary Blood NO GROWTH AFTER 24 HOURS 07/21/23 16:32 Blood Culture - Preliminary Blood NO GROWTH AFTER 48 HOURS 07/21/23 16:20 Blood Culture - Preliminary Blood NO GROWTH AFTER 48 HOURS Discharge Plan Discharge Disposition: Home, Self-Care Date of Admission: 07/21/23 21:02 Attending Provider on Discharge: Tonya Crandall Primary Care Provider: Guillermo Gannon Condition: Improved Anticipated Discharge Date/Time: 07/24/23 14:07 Discharge Medications: New furosemide [Lasix] 20 mg tablet 20 mg PO DAILY Qty: 30 2RF Rx Instructions: [facility] cephalexin 500 mg capsule 500 mg PO BID 7 Days Qty: 14 0RF Continued losartan 50 mg tablet 50 mg PO DAILY atorvastatin 40 mg tablet 40 mg PO DAILY amlodipine 10 mg tablet 10 mg PO DAILY metformin 1,000 mg tablet 1,000 mg PO BID metoprolol tartrate 50 mg tablet 50 mg PO BID hydrochlorothiazide 25 mg tablet 25 mg PO DAILY ezetimibe 10 mg tablet 10 mg PO DAILY fenofibrate nanocrystallized 145 mg tablet 145 mg PO DAILY Humulin 70/30 U-100 KwikPen 100 unit/mL (70-30) insulin pen 50 unit subcut BID Discharge Orders: Discharge Order (Routine); Ordered 07/24/23 Ordered By: Tonya Crandall Additional Instructions: See Dra. Baca as scheduled for followup to discuss a pelvic ultrasound and sleep study. You have TWO new medications at [facility]: One is an antibiotic (take twice per day for one week) and the other is a diuretic that will help with swelling. Take this in the morning. No changes to the rest of your medications. [place] Dra. Baca seg?n lo programado para el seguimiento para discutir un ultrasonido p?lvico y un estudio del hyacinth?o. Usted tiene DOS medicamentos nuevos en [facility]: lorin es un antibi?mihir (francesca dos veces al d?a gabriela waylon semana) y el otro es un diur?mihir que ayudar? con la hinchaz?n. [place] esto por la ma?stacie. No hay cambios en el laina de [place] medicamentos. Activity Level: Activity as Tolerated Discharge Diet: Diabetic and Heart Healthy (2 gm sodium, low fat) Follow Up Appointments: Mackenzie Baca DO [Staff Physician] - 08/02/23 11:00 am (Dr. Baca next week to discuss hospitalization and orders for pelvic u/s and sleep study) Forms: [facility] Info Instructions
[2023-07-24] MEDS: cefTRIAXone 1 GM in 0.9 % SODIUM CHLORIDE Mini-bag 100 ML IVPB (14:29)
--- NOTE | 2023-07-24 14:32 | PC.NURSE ---
VSS- apneic periods when sleeping. Denies pain. Ate 50% breakfast & lunch, 6 units SS insulin given w/ lunch. Void x2. Last BM 07/23/23. Up w/ assist of 1. PIV in left FA- infusing ABX. Discharging later today.
== END 2023-07-24 15:18 | disposition home or self-care (01) | DRG 690 ==
LOC: ED 20:13 → MEDSURG 20:14
PROVIDERS: Family Medicine; Admitting Provider Family Medicine; Emergency Provider Emergency Medicine; PCP Family Medicine; Visit Provider Family Medicine
DX: N39.0 Urinary tract infection, site not specified (principal); Z68.41 Body mass index [BMI] 40.0-44.9, adult; B96.20 Unspecified Escherichia coli [E. coli] as the cause of diseases classified elsewhere; Z79.84 Long term (current) use of oral hypoglycemic drugs; Z79.4 Long term (current) use of insulin; G47.34 Idiopathic sleep related nonobstructive alveolar hypoventilation; E11.42 Type 2 diabetes mellitus with diabetic polyneuropathy; E66.01 Morbid (severe) obesity due to excess calories; N95.0 Postmenopausal bleeding; R19.03 Right lower quadrant abdominal swelling, mass and lump; I10 Essential (primary) hypertension; K76.0 Fatty (change of) liver, not elsewhere classified; K80.20 Calculus of gallbladder without cholecystitis without obstruction; E78.5 Hyperlipidemia, unspecified
CPT/HCPCS: 36415; 71045; 71046; 71275; 74177; 80048; 80053; 80076; 81001; 82962; 83605; 84145; 84443; 85025; 85651; 86140; 87040; 87086; 87186; 87631; 93306; 94761; 99284; 99285; A9270; J0696; J1650; J2543; J3370; J7030; J7120; Q9967

== ENCOUNTER 2023-08-16 15:40 | Outpatient (CLI) | payer OTHER, SELFPAY ==
--- NOTE | 2023-08-16 16:00 | CRLHL7_ITS ---
For Patients: As a result of the Century Cures Act, medical imaging exams and procedure reports are released immediately into your electronic medical record. You may view this report before your referring provider. If you have questions, please contact your health care provider. INDICATION: MASS ON CT COMPARISON: CT 07/21/2023 TECHNIQUE: 2D corrales scale and color Doppler images were acquired of the pelvis using a transabdominal and transvaginal approach. FINDINGS: Kendall hypoechoic material within the endocervical canal measuring 8 x 4 x 4 millimeters with mild surrounding fluid. Uterus measures 8.3 cm in length by 5.3 cm in AP diameter by 5.5 cm in transverse dimension. Large calcified uterine fibroid is present at the anterior uterine fundus measuring 4.5 x 4.0 x 4.7 cm. The endometrium is obscured. The ovaries are not visualized. IMPRESSION: The right adnexa is obscured by overlying bowel gas. Therefore, the oblong circumscribed mass in the right lower quadrant is not visualized by ultrasound. Pelvic MRI may be necessary for further evaluation. Calcified anterior fundal uterine fibroid measuring 4.7 cm which obscures the underlying endometrium. Kendall nodular like area within the endocervical canal surrounded by small amount of fluid measuring 8 x 4 x 4 millimeters, possibly representing blood products. Dictated by Rey Rojas MD @ 08/17/2023 9:30:55 AM (Electronically Signed)
== END 2023-08-16 15:41 | disposition home or self-care (01) ==
LOC: US 15:48
PROVIDERS: PCP Family Medicine; Visit Provider Obstetrics & Gynecology
DX: R19.00 Intra-abdominal and pelvic swelling, mass and lump, unspecified site (principal); D25.9 Leiomyoma of uterus, unspecified
CPT/HCPCS: 76830; T1013

== ENCOUNTER 2023-08-17 13:07 | Outpatient (CLI) | payer OTHER, SELFPAY | END 2023-08-17 13:08 | disposition home or self-care (01) | PROVIDERS: PCP Family Medicine; Visit Provider Obstetrics & Gynecology | DX: R19.00 Intra-abdominal and pelvic swelling, mass and lump, unspecified site (principal); I10 Essential (primary) hypertension; E78.5 Hyperlipidemia, unspecified; E66.01 Morbid (severe) obesity due to excess calories; E11.9 Type 2 diabetes mellitus without complications | CPT/HCPCS: 82378; 86301; 86304 ==